=== PATIENT | male | born 1975 | race Caucasian/White ===

== ENCOUNTER 2024-06-15 12:51 | Emergency (ER) | payer BC ==
[~2024-06-15] VITALS: Ht 182.8 cm; Wt 94.6 kg
[2024-06-15] MEDS ORDERED: SODIUM CHLORIDE 0.9% 10 ML VIAL IV ONE (13:35)
[2024-06-15] MEDS ORDERED: Metoclopramide Hydrochloride 10 MG/2 ML VIAL IV ONE (13:35)
[2024-06-15] MEDS ORDERED: LORazepam 1 MG TAB SL ONE (13:40)
[2024-06-15] MEDS ORDERED: SODIUM CHLORIDE 0.9% 1,000 ML BAG IV ONE (13:50)
[2024-06-15 14:02] LABS: BASO # 0.1 10*3/uL (0.0-0.1); BASO % 0.4 % (0.0-1.0); EOS % 0.1 % (1.0-4.0); HEMATOCRIT 51.2 % (42.0-52.0); MEAN CELL VOLUME 88.9 fl (80.0-94.0); MEAN CORPUSCULAR HGB 29.3 pg (27.0-31.0); MEAN PLATELET VOLUME 11.3 fl (9.6-12.3); MONO # 0.4 10*3/uL (0.1-1.0); MONO % 3.5 % (3.0-9.0); NEUT # 10.9 10*3/uL (2.3-7.9); NEUT % 88.2 % (47.0-73.0); PLATELET COUNT AUTOMATED 179 10*3/uL (130-400); RED BLOOD COUNT 5.76 10*6/uL (4.50-5.90); RED CELL DISTRI WIDTH 13.1 % (0-14.5); WHITE BLOOD COUNT 12.4 10*3/uL (4.8-10.8)
[2024-06-15 14:16] LABS: ALKALINE PHOSPHATASE 69 U/L (46-116); BUN 23 mg/dl (9-23); CHLORIDE 104 mmol/L (98-107); POTASSIUM 4.5 mmol/L (3.4-5.1); SGPT/ALT 36 U/L (5-49); TOTAL PROTEIN 7.7 gm/dL (6.0-8.0)
== END 2024-06-15 17:52 | disposition home or self-care (01) ==
LOC: ED 12:51
PROVIDERS: Emergency Medicine
DX: R55 Syncope and collapse (principal); I10 Essential (primary) hypertension